=== PATIENT | female | born 1955 | race Caucasian/White ===

== ENCOUNTER → 2018-02-17 | Outpatient (CLI) | payer BC ==
[~2018-02-17] MED LIST: MOBIC15 MG PO; ZOLOFT 100MG100 MG PO
== END ==
LOC: MHCPAIN 10:35
DX: G89.29 Other chronic pain (principal); M79.2 Neuralgia and neuritis, unspecified; M79.1 Myalgia; M53.3 Sacrococcygeal disorders, not elsewhere classified
CPT/HCPCS: G0463

== ENCOUNTER → 2018-03-05 | Outpatient (CLI) | payer OTHER | LOC: MHCPAIN 11:04 | DX: M53.3 Sacrococcygeal disorders, not elsewhere classified (principal); R10.2 Pelvic and perineal pain | CPT/HCPCS: J1100; Q9967 ==

== ENCOUNTER → 2018-03-19 | Outpatient (CLI) | payer OTHER | LOC: MHCPAIN 10:44 | DX: G89.29 Other chronic pain (principal); M79.2 Neuralgia and neuritis, unspecified; M79.1 Myalgia; R10.2 Pelvic and perineal pain; M53.3 Sacrococcygeal disorders, not elsewhere classified | CPT/HCPCS: G0463 ==

== ENCOUNTER → 2018-05-18 | Outpatient (CLI) | payer OTHER | LOC: MHCPAIN 10:37 | DX: G89.29 Other chronic pain (principal); M79.1 Myalgia; M79.2 Neuralgia and neuritis, unspecified | CPT/HCPCS: G0463 ==

== ENCOUNTER 2020-05-19 10:04 | Day surgery (SDC) | payer OTHER ==
[~2020-05-19] VITALS: Ht 170.2 cm; Wt 76.2 kg
[2020-05-19 10:29] VITALS: BP 143/96; PULSE 70; TEMP 97.7
[2020-05-19] MEDS ORDERED: DESYREL 100MG100 MG PO (10:36)
[2020-05-19] MEDS ORDERED: CYMBALTA 60MG60 MG PO (10:36)
[2020-05-19] MEDS ORDERED: CELEBREX 200MG200 MG PO (10:36)
[2020-05-19] MEDS ORDERED: ZANAFLEX2 MG PO (10:36)
[2020-05-19 12:50] VITALS: BP 146/95; PULSE 64; TEMP 97
--- NOTE | 2020-05-19 12:50 | NUR ---
PATIENT TRANSPORTED BE CART TO BAY 4 ACCOMPANIED BY ENDO STAFF. PATIENT AMBULATED FROM CART TO CHAIR WITH 1 ASSIST. STEADY GAIT. MONITORS APPLIED ON ROOM AIR. VSS. PATIENT TALKING WITH STAFF. AT BEDSIDE. 1255 PATIENT GIVEN COFFEE AND SODA CRACKER. PATIENT DENIES DISCOMFORT AND NAUSEA.
[2020-05-19 13:00] VITALS: BP 136/98; PULSE 65
--- NOTE | 2020-05-19 13:03 | NUR ---
VSS ON ROOM AIR. BLOOD PRESSURE IS 136/98. WILL CONTINUE TO MONITOR. PATIENT TOLERATED COFFEE AND CRACKERS WITHOUT PROBLEMS. TALKING WITH .
--- NOTE | 2020-05-19 13:14 | NUR ---
DOCTOR SPEAKS WITH PATIENT AND THANHNCE VSS STABLE ON ROOM AIR. BLOOD PRESSURE 138/80. PATIENT DENIES DISCOMFORT AND NAUSEA. IV SITE DC'D INTACT, PRESSURE AND BANDAGE APPLIED. 1320 DISCHARGE INSTRUCTIONS GIVEN VERBAL AND WRITTEN. QUESTIONS ANSWERED AND PATIENT VOICED UNDERSTANDING. PATIENT GIVEN DISCHARGE PACKET. [address] BACK INTO [address]REET CLOTHES. 1330 DISCHARGED PER WHEELCHAIR ACCOMPANIED BY STAFF TO CAR DRIVEN BY KASHIF.
[2020-05-19 13:15] VITALS: BP 138/80; PULSE 63
[2020-05-19 13:49] VITALS: BP 129/92; PULSE 60
== END 2020-05-19 13:30 | disposition home or self-care (01) ==
LOC: SDCO 10:04
DX: Z12.11 Encounter for screening for malignant neoplasm of colon (principal); D12.8 Benign neoplasm of rectum; K57.30 Diverticulosis of large intestine without perforation or abscess without bleeding; G89.29 Other chronic pain; F41.9 Anxiety disorder, unspecified; F32.9 Major depressive disorder, single episode, unspecified; Z86.010 Personal history of colon polyps; Z90.49 Acquired absence of other specified parts of digestive tract; Z87.891 Personal history of nicotine dependence; Z79.52 Long term (current) use of systemic steroids
CPT/HCPCS: J2704; J3010; J7030